=== PATIENT | female | born 2000 | race African-American/Black ===

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

== ENCOUNTER 2023-10-20 15:00 | Inpatient (IN) | payer MEDICAID ==
[~2023-10-20] VITALS: Ht 160 cm; Wt 87.5 kg
[~2023-10-20 15:00] MED LIST: CEPH250C2 MT; ONDA4TAB11 PO
[2023-10-20] MEDS ORDERED: FAMOTIDINE 20MG/2ML VIAL IV STA (15:16)
[2023-10-20] MEDS ORDERED: METOCLOPRAMIDE HCL 10MG/2ML VIAL IV STA (15:16)
[2023-10-20] MEDS ORDERED: SODIUM CHLORIDE 0.9% 1,000 ML IV ONE (15:30)
[2023-10-20 15:45] LABS: BASOPHILS % 0.6 % (0.0-2.0); EOSINOPHILS % 0.4 % (0.0-5.0); HEMATOCRIT. 39.1 % (36.0-48.0); HEMOGLOBIN. 13.3 g/dL (12.0-16.0); LYMPHOCYTES % 24.1 % (20.0-50.0); MEAN CORPUSCULAR HEMOGLOBIN 28.8 pg (28.0-32.0); MEAN CORPUSCULAR HGB CONC 33.9 g/dL (31.0-37.0); MEAN CORPUSCULAR VOLUME 84.9 fL (81.0-99.0); MEAN PLATELET VOLUME 9.5 fl (7.4-10.4); MONOCYTES % 5.8 % (2.0-8.0); NEUTROPHILS % 69.1 % (40.0-76.0); PLATELET 276 x1000/uL (130-400); RED BLOOD CELL COUNT 4.61 mill/uL (4.2-5.4); RED CELL DISTRIBUTION WIDTH 13.5 % (11.6-14.6); WHITE BLOOD COUNT 8.1 x1000/uL (4.5-11.0)
[2023-10-20 16:44] LABS: ALANINE AMINOTRANSFERASE 16 IU/L (10-49); ALBUMIN 4.7 g/dL (3.2-4.8); ASPARTATE AMINOTRANSFERASE 39 IU/L (<34); BILIRUBIN TOTAL 0.7 mg/dL (0.1-1.0); CALCIUM 9.5 mg/dL (8.7-10.4); CARBON DIOXIDE 25 mEq/L (21-32); CHLORIDE 100 mEq/L (98-107); CREATININE 0.6 mg/dL (0.6-1.0); GLUCOSE 100 mg/dL (70-105); POTASSIUM 5.7 mEq/L (3.5-5.1); PROTEIN TOTAL 7.9 g/dL (6.0-8.3); SODIUM 132 mEq/L (136-145); UREA NITROGEN BLOOD 6 mg/dL (9-23)
[2023-10-20 19:23] LABS: BETA HYDROXYBUTYRATE 0.9 mMol/L (0.0-0.3)
[2023-10-20 19:40] LABS: CLARITY URINE CLOUDY (CLEAR); COLOR URINE DARK YELLOW (YELLOW); GLUCOSE URINE NEGATIVE (NEGATIVE); KETONES URINE 4+ (NEGATIVE); LEUKOCYTE ESTERASE URINE TRACE (NEGATIVE); NITRITE URINE NEGATIVE (NEGATIVE); OCCULT BLOOD URINE NEGATIVE (NEGATIVE); PH URINE 6.5 (4.5-8.0); PROTEIN URINE 1+ (NEGATIVE); SPECIFIC GRAVITY URINE 1.039 (1.005-1.030)
[2023-10-20 19:52] LABS: BACTERIA URINE 3+; RBC URINE 0-2 /hpf (0-2); SQUAMOUS EPITHELIAL CELL URINE 2+ /lpf (RARE/1+); WBC URINE 0-2 /hpf (0-2)
[2023-10-20] MEDS ORDERED: CEFTRIAXONE 1GM PREMIX 50 ML IV NR (22:00)
[2023-10-20] MEDS ORDERED: ACETAMINOPHEN 325MG TABLET PO PRN (22:00)
[2023-10-20] MEDS ORDERED: DOCUSATE SODIUM 100MG CAPSULE PO PRN (22:00)
[2023-10-20] MEDS ORDERED: IPRATROPIUM/ALBUTEROL 0.5-3(2.5)MG/3ML NEB HHN PRN (22:00)
[2023-10-20] MEDS ORDERED: CLONIDINE 0.1MG TABLET PO PRN (22:00)
[2023-10-20] MEDS ORDERED: MECLIZINE 12.5MG TABLET PO PRN (22:00)
[2023-10-20] MEDS ORDERED: PANTOPRAZOLE 40MG DR TABLET PO PRN (22:15)
[2023-10-21] MEDS: ACETAMINOPHEN 325MG TABLET PO PRN ×2 (01:17→08:35)
[2023-10-21 01:53] VITALS: BP 102/56; PULSE 67; RESP 18; TEMP 97.3
[2023-10-21 08:00] VITALS: BP 95/71; PULSE 74; RESP 18; TEMP 97.9
[2023-10-21] MEDS: FOLIC ACID/VITAMIN B COMP W-C TABLET PO SCH (08:35)
[2023-10-21 09:56] LABS: CALCIUM 9.3 mg/dL (8.7-10.4); CARBON DIOXIDE 24 mEq/L (21-32); CHLORIDE 101 mEq/L (98-107); CREATININE 0.6 mg/dL (0.6-1.0); GLUCOSE 73 mg/dL (70-105); SODIUM 135 mEq/L (136-145)
[2023-10-21] MEDS ORDERED: FAMOTIDINE 20MG TABLET PO PRN (10:30)
[2023-10-21 11:07] LABS: UREA NITROGEN BLOOD < 5 mg/dL (9-23)
[2023-10-21 12:00] VITALS: BP 118/77; PULSE 75; RESP 18; TEMP 98
[2023-10-21 12:48] LABS: IRON 94 ug/dL (50-170); TOTAL IRON BINDING CAPACITY 255 ug/dl (250-425)
[2023-10-21 16:00] VITALS: BP 109/66; PULSE 70; RESP 18; TEMP 98.4
[2023-10-21] MEDS ORDERED: POTASSIUM CHLORIDE 20MEQ TABLET SR PO NR (18:30)
[2023-10-21 19:00] LABS: FERRITIN 90 ng/mL (10-291); FOLIC ACID (FOLATE) SERUM 15.27 ng/mL (>5.38); VITAMIN B12 SERUM 1045 pg/mL (211-911)
[2023-10-21 20:00] VITALS: BP 117/70; PULSE 67; RESP 19; TEMP 98.2
[2023-10-21] MEDS: CEFTRIAXONE 1,000 MG in DEXTROSE 5% WATER 50 ML IV SCH (21:32)
[2023-10-22 01:45] LABS: *AMPHETAMINES SCREEN URINE NEGATIVE (NEGATIVE); *BARBITURATES SCREEN URINE NEGATIVE (NEGATIVE); *BENZODIAZEPINES SCREEN URINE NEGATIVE (NEGATIVE); *COCAINE SCREEN URINE NEGATIVE (NEGATIVE); CANNABINOID URINE SCREEN PRESUMPTIVE POSITIVE (NEGATIVE); ECSTASY MDMA SCREEN URINE NEGATIVE (NEGATIVE); METHADONE URINE SCREEN Neg (NEGATIVE); OPIATES URINE SCREEN NEGATIVE (NEGATIVE); PHENCYCLIDINE URINE SCREEN NEGATIVE (NEGATIVE)
[2023-10-22 07:31] LABS: BASOPHILS % 0.4 % (0.0-2.0); EOSINOPHILS % 1.2 % (0.0-5.0); HEMATOCRIT. 34.5 % (36.0-48.0); LYMPHOCYTES % 44.5 % (20.0-50.0); MEAN CORPUSCULAR HEMOGLOBIN 29.1 pg (28.0-32.0); MEAN CORPUSCULAR HGB CONC 34.9 g/dL (31.0-37.0); MEAN CORPUSCULAR VOLUME 83.4 fL (81.0-99.0); MEAN PLATELET VOLUME 9.9 fl (7.4-10.4); MONOCYTES % 7.9 % (2.0-8.0); PLATELET 214 x1000/uL (130-400); RED BLOOD CELL COUNT 4.13 mill/uL (4.2-5.4); WHITE BLOOD COUNT 5.7 x1000/uL (4.5-11.0)
[2023-10-22 08:00] VITALS: BP 108/57; PULSE 81; RESP 19; TEMP 97.5
[2023-10-22 08:04] LABS: CARBON DIOXIDE 25 mEq/L (21-32); CHLORIDE 103 mEq/L (98-107); CREATININE 0.5 mg/dL (0.6-1.0); GLUCOSE 73 mg/dL (70-105); POTASSIUM 2.9 mEq/L (3.5-5.1); SODIUM 137 mEq/L (136-145)
[2023-10-22 08:07] LABS: UREA NITROGEN BLOOD < 5 mg/dL (9-23)
[2023-10-22] MEDS: FOLIC ACID/VITAMIN B COMP W-C TABLET PO SCH (08:52)
[2023-10-22] MEDS: ACETAMINOPHEN 325MG TABLET PO PRN (08:58)
[2023-10-22] MEDS ORDERED: POTASSIUM CHLORIDE 20MEQ TABLET SR PO NR (11:00)
[2023-10-22 12:00] VITALS: BP 109/67; PULSE 83; RESP 19; TEMP 97.6
[2023-10-22] MEDS: KCL 20MEQ/100ML PREMIX 100 ML IV SCH ×2 (13:30→15:30)
[2023-10-22 14:22] LABS: PHOSPHORUS 3.4 mg/dL (2.5-4.9)
[2023-10-22 16:00] VITALS: BP 118/68; PULSE 91; RESP 20; TEMP 96.4
[2023-10-22] MEDS ORDERED: SODIUM CHLORIDE 0.9% 500 ML IV ONE (16:30)
[2023-10-22] MEDS: BISACODYL 10MG SUPP PR SCH ×2 (16:38→22:09)
[2023-10-22] MEDS: MAGNESIUM HYDROXIDE 400MG/5ML 30ML UDC PO SCH ×2 (16:38→22:09)
[2023-10-22] MEDS ORDERED: MAGNESIUM OXIDE 400MG TABLET PO SCH (17:30)
[2023-10-22 20:00] VITALS: BP 115/74; PULSE 87; RESP 18; TEMP 97.5
[2023-10-22] MEDS: CEFTRIAXONE 1,000 MG in DEXTROSE 5% WATER 50 ML IV SCH (22:09)
[2023-10-23] VITALS: BP 103/63; PULSE 82; RESP 18; TEMP 97.7
[2023-10-23] MEDS: MAGNESIUM HYDROXIDE 400MG/5ML 30ML UDC PO SCH ×4 (04:15→21:28)
[2023-10-23] MEDS: BISACODYL 10MG SUPP PR SCH ×4 (04:15→21:28)
[2023-10-23 07:55] LABS: CALCIUM 8.6 mg/dL (8.7-10.4); CARBON DIOXIDE 25 mEq/L (21-32); CHLORIDE 103 mEq/L (98-107); CREATININE 0.4 mg/dL (0.6-1.0); GLUCOSE 76 mg/dL (70-105); SODIUM 138 mEq/L (136-145); T4 FREE 1.04 ng/dL (0.89-1.76); THYROID STIMULATING HORMONE 1.32 uIU/mL (0.55-4.78)
[2023-10-23 08:05] LABS: BASOPHILS % 0.5 % (0.0-2.0); HEMATOCRIT. 33.8 % (36.0-48.0); HEMOGLOBIN. 11.7 g/dL (12.0-16.0); LYMPHOCYTES % 41.2 % (20.0-50.0); MEAN CORPUSCULAR HGB CONC 34.5 g/dL (31.0-37.0); MEAN PLATELET VOLUME 10.3 fl (7.4-10.4); NEUTROPHILS % 51.3 % (40.0-76.0); PLATELET 193 x1000/uL (130-400); RED BLOOD CELL COUNT 4.02 mill/uL (4.2-5.4); WHITE BLOOD COUNT 6.5 x1000/uL (4.5-11.0)
[2023-10-23 08:10] VITALS: BP 117/62; PULSE 68; RESP 17; TEMP 97.5
[2023-10-23] MEDS: FOLIC ACID/VITAMIN B COMP W-C TABLET PO SCH (08:45)
[2023-10-23 08:54] LABS: POTASSIUM 2.8 mEq/L (3.5-5.1); UREA NITROGEN BLOOD < 5 mg/dL (9-23)
[2023-10-23] MEDS: SODIUM CHLORIDE 0.9% 1,000 ML IV SCH ×3 (10:00→20:00)
[2023-10-23] MEDS ORDERED: KCL 20MEQ/100ML PREMIX 100 ML IV SCH (11:00)
[2023-10-23 12:00] VITALS: BP 113/74; PULSE 84; RESP 20; TEMP 97.5
[2023-10-23] MEDS ORDERED: MAGNESIUM 2 G PREMIX 50 ML IV NR (13:00)
[2023-10-23] MEDS ORDERED: POTASSIUM CHLORIDE 20MEQ TABLET SR PO NR (15:45)
[2023-10-23 16:00] VITALS: BP 123/65; PULSE 79; RESP 20; TEMP 97.5
[2023-10-23] MEDS ORDERED: MINERAL OIL ENEMA 133ML PR NR (17:15)
[2023-10-23 20:00] VITALS: BP 111/64; PULSE 71; RESP 18; TEMP 97.7
[2023-10-23] MEDS: CEFTRIAXONE 1,000 MG in DEXTROSE 5% WATER 50 ML IV SCH (20:14)
[2023-10-23] MEDS: ACETAMINOPHEN 325MG TABLET PO PRN (21:29)
[2023-10-23] MEDS ORDERED: PREN-118 PO (22:12)
[2023-10-23] MEDS ORDERED: POLY119P2 PO (22:12)
[2023-10-24] MEDS: MAGNESIUM HYDROXIDE 400MG/5ML 30ML UDC PO SCH (04:15)
[2023-10-24] MEDS: BISACODYL 10MG SUPP PR SCH (04:15)
[2023-10-24] MEDS: SODIUM CHLORIDE 0.9% 1,000 ML IV SCH (06:00)
[2023-10-24 06:56] LABS: BASOPHILS % 0.5 % (0.0-2.0); EOSINOPHILS % 0.9 % (0.0-5.0); HEMATOCRIT. 33.3 % (36.0-48.0); HEMOGLOBIN. 11.7 g/dL (12.0-16.0); LYMPHOCYTES % 42.5 % (20.0-50.0); MEAN CORPUSCULAR HEMOGLOBIN 29.3 pg (28.0-32.0); MEAN CORPUSCULAR HGB CONC 35.1 g/dL (31.0-37.0); MEAN CORPUSCULAR VOLUME 83.7 fL (81.0-99.0); MONOCYTES % 4.9 % (2.0-8.0); NEUTROPHILS % 51.2 % (40.0-76.0); PLATELET 188 x1000/uL (130-400); RED BLOOD CELL COUNT 3.98 mill/uL (4.2-5.4); RED CELL DISTRIBUTION WIDTH 13.2 % (11.6-14.6); WHITE BLOOD COUNT 6.2 x1000/uL (4.5-11.0)
[2023-10-24 07:21] LABS: CALCIUM 8.5 mg/dL (8.7-10.4); CARBON DIOXIDE 25 mEq/L (21-32); CHLORIDE 105 mEq/L (98-107); CREATININE 0.4 mg/dL (0.6-1.0); GLUCOSE 72 mg/dL (70-105); PHOSPHORUS 3.4 mg/dL (2.5-4.9); POTASSIUM 3.4 mEq/L (3.5-5.1); SODIUM 138 mEq/L (136-145); UREA NITROGEN BLOOD 6 mg/dL (9-23)
[2023-10-24 08:00] VITALS: BP 123/71; PULSE 77; RESP 19; TEMP 97.7
[2023-10-24] MEDS: FOLIC ACID/VITAMIN B COMP W-C TABLET PO SCH (09:09)
[2023-10-24 10:33] VITALS: BP 123/71; PULSE 77; TEMP 97.7; O2SAT 100
[2023-10-24] MEDS ORDERED: POTASSIUM CHLORIDE 20MEQ TABLET SR PO SCH (11:00)
== END 2023-10-24 12:35 | disposition home or self-care (01) | DRG 566 ==
LOC: ER 15:00 → 6EST 20:58 → ER 23:59
PROVIDERS: ADMIT Internal Medicine; ATTEND Internal Medicine
DX: O21.0 Mild hyperemesis gravidarum (principal); O23.01 Infections of kidney in pregnancy, first trimester; O99.321 Drug use complicating pregnancy, first trimester; O23.41 Unspecified infection of urinary tract in pregnancy, first trimester; Z3A.12 12 weeks gestation of pregnancy; N39.0 Urinary tract infection, site not specified; E87.6 Hypokalemia; O99.341 Other mental disorders complicating pregnancy, first trimester; F43.20 Adjustment disorder, unspecified; O99.281 Endocrine, nutritional and metabolic diseases complicating pregnancy, first trimester; Z56.0 Unemployment, unspecified; F12.90 Cannabis use, unspecified, uncomplicated; K59.00 Constipation, unspecified; E83.42 Hypomagnesemia; O99.611 Diseases of the digestive system complicating pregnancy, first trimester
CPT/HCPCS: 36415; 76705; 76770; 76801; 80048; 80053; 80305; 81003; 82010; 82607; 82728; 82746; 83540; 83550; 83735; 84100; 84145; 84439; 84443; 84702; 85025; 93970; 99285; J0696; J2765; J3475; J3480; J3490; J7030; J7060; J8597